=== PATIENT | female | born 1935 | race Caucasian/White ===

== ENCOUNTER 2020-04-13 14:25 | Inpatient (IN) | payer MEDICARE, OTHER, SELFPAY ==
--- NOTE | 2020-04-13 14:31 | XR_ITS ---
EXAMINATION: XR CHEST CLINICAL INFORMATION: Fever. COMPARISON: CTA chest 03/22/2019 TECHNIQUE: Frontal view of the chest was obtained. FINDINGS: The lungs are well-expanded and clear of acute pneumonic process. The heart size and pulmonary vascularity is normal. No gross bony abnormality seen. XR/XR chest 1V IMPRESSION: Unremarkable chest exam.
--- NOTE | 2020-04-13 14:31 | ED_ITS ---
HPI - General Adult General Chief complaint: Urogenital-Female Stated complaint: fever Time Seen by Provider: 04/13/20 14:31 Source: EMS Mode of arrival: EMS Limitations: no limitations History of Present Illness HPI narrative: This is a pleasant 84-year-old female presenting from home via EMS she has a history of hypertension, hyperlipidemia, DVT, pulmonary embolism chronically anticoagulated on Eliquis she also reports that she has history of urine tract infections and for the past 3 days she has had some burning like discomfort with urination today she has some chills and low-grade temp. Onset (ago): day(s) (3 days ) Related Data Home Medications Medication Instructions Recorded Confirmed apixaban [Eliquis] 1 tab PO BID 04/13/20 04/13/20 atenolol 1 tab PO DAILY 04/13/20 04/13/20 lisinopril-hydrochlorothiazide 1 tab PO DAILY 04/13/20 04/13/20 simvastatin 1 tab PO BEDTIME 04/13/20 04/13/20 Allergies Allergy/AdvReac Type Severity Reaction Status Date / Time No Known Allergies Allergy Verified 04/13/20 18:51 [No Known Allergies*] Review of Systems Review of Systems: Constitutional: No Weight loss, No Fever, + Chills, No Night Sweats, No Fatigue, No Malaise ENT/Mouth: No Hearing loss, No Ear Pain, No Nasal Congestion, No Sinus Pain, No Hoarseness, No sore throat, No Rhinorrhea, No Swallowing Difficulty Eyes: No Eye Pain, No Swelling, No Redness, No Foreign Body, No Discharge, No Vision Changes Cardiovascular: No Chest Pain, No SOB, No Dyspnea on Exertion, No Orthopnea, No Edema, No Palpitations Respiratory: No Cough, No Sputum, No Wheezing, No Smoke Exposure, No Dyspnea Gastrointestinal: No Nausea, No Vomiting, No Diarrhea, No Constipation, No abdominal Pain, No Hematochezia, No Melena Genitourinary: no irregular bleeding, + Dysuria, No Flank Pain, No Hesitancy Musculoskeletal: No joint pain, No Myalgias, No Joint Swelling Skin: No Skin Lesions, No rash Neuro: No Weakness, No Numbness, No Paresthesias, No Loss of Consciousness, No Dizziness, No Headache Psych: No Social Issues Heme/Lymph: No Bruising, No Bleeding,No Lymphadenopathy Endocrine: No Polyuria, No Polydipsia, No Temperature Intolerance Yes all other systems are reviewed and are negative [facility] Past Medical History Medical History (Updated 04/13/20 @ 19:40 by TIMMY Workman) Clostridium difficile colitis DVT (deep venous thrombosis) Endocervical adenocarcinoma Hyperlipidemia Hypertension Pulmonary embolism Urinary tract infection Family History Family History (Updated 04/13/20 @ 19:39 by TIMMY Workman) Other HTN (hypertension) Social History Social History Household Members: Family Alcohol intake: never Smoking Status: Never smoker Use of substances other than those prescribed or required for medical reasons: No Advance Directives: No Advance Directives Information Provided: No Physical Exam Vital Signs: Vital Signs: Last Vital Signs Temp 99.3 F 04/13/20 14:38 Pulse 81 04/13/20 19:01 Resp 18 04/13/20 19:01 BP 104/54 L 04/13/20 19:01 Pulse Ox 97 04/13/20 19:01 Body Mass Index 21.8 Reviewed Const: Other: Frail, elderly General: No acute distress or intoxicated appearing Nutritional Appearance: average body habitus Orientation /consciousness: patient oriented x3 HENMT: Head: Yes normal to inspection Ears: hearing grossly normal bilaterally Eyes: General: appearance normal, both eyes and all related structures Visual Bills: normal visual bills by confrontation Neck: Neck: Yes normal visual inspection and No tender Thyroid: Thyroid normal Chest: Chest palpation & inspection: normal inspection of the chest Resp: Effort & Inspection: normal respiratory effort Cardio: Jugular venous distension: no JVD GI: Inspection: Yes normal to inspection Percussion: Yes normal to percussion Auscultation: normal bowel sounds : General: Yes no CVA tenderness Back/Spine/Pelvis: Back: no CVA tenderness Skin: General skin exam: no rashes or lesions noted Neuro: General: patient oriented x3 Extrem: General: Yes normal to inspection Course Reevaluation(s) Reevaluation #1: 1540 RN was able to obtain a UA Empiric dose of ceftriaxone ordered given likely urinary and etiology with her history. WBC shows significant increase in leukocytosis from 12.92 now 19. Chemistries still pending. 1600 I attempted call to send to assist in further history apparently RN was able to contact him and she apparently is currently being treated for UTI with Macrobid Medical Decision Making Medical Records Medical records reviewed: Yes I reviewed the patient's medical records. Medical records narrative: In review 84-year-old female with above history as noted presenting with dysuria apparently currently on Macrobid lab show leukocytosis of 19,000 with T-max 101 at home afebrile upon arrival. UA overtly infected. No abdominal pain or flank pain. Lab Data Result diagrams: 04/13/20 15:07 04/13/20 16:00 Labs: Lab Results 04/13/20 04/13/20 04/13/20 Range/Units 15:07 15:07 15:07 WBC 19.4 H (4.8-10.8) X10*3/uL RBC 3.72 L (4.20-5.50) X10*6/uL Hgb 11.6 L (12.0-16.0) g/dl Hct 35.0 L (37-47) % MCV 94.1 (80-98) fL MCH 31.2 (27.0-33.0) pg MCHC 33.1 (31.0-35.0) g/dl RDW 13.5 (11.0-16.0) % Plt Count 197 (160-400) X10*3/uL MPV 8.7 L (9.4-12.3) fL Immature Gran % (Auto) 0.5 H (0.0-0.4) % Neut % (Auto) 89.0 H (45-73) % Lymph % (Auto) 4.3 L (20-40) % [place] % (Auto) 5.5 (2-11) % Eos % (Auto) 0.5 (0-4) % Baso % (Auto) 0.2 (0-2) % Lymph # (Auto) 0.8 L (1.2-4.9) X10*3/uL [place] # (Auto) 1.1 (0.1-1.2) X10*3/uL Eos # (Auto) 0.1 (0.0-0.4) X10*3/uL Baso # (Auto) 0.0 (0.0-0.2) X10*3/uL Abs Immat Gran (auto) 0.09 H (0.00-0.03) X10*3/uL Absolute Neuts (auto) 17.3 H (2.0-8.3) X10*3/uL Absolute Nucleated RBC 0.000 (0.0-0.012) X10*3/uL Nucleated RBC % (auto) 0.0 (0.0-0.2) /100WBC PT 17.1 H (10.8-13.0) SEC INR 1.4 H (0.9-1.1) APTT 35.8 (24.1-38.0) SEC Sodium Cancelled Potassium Cancelled Chloride Cancelled Carbon Dioxide Cancelled Anion Gap Cancelled BUN Cancelled Creatinine Cancelled Estim Creat Clear Calc Cancelled Estimated GFR Cancelled Random Glucose Cancelled Lactic Acid (0.5-2.0) mmol/L Calcium Cancelled Total Bilirubin Cancelled AST Cancelled ALT Cancelled Alkaline Phosphatase Cancelled Total Protein Cancelled Albumin Cancelled Urine Color Urine Appearance Urine pH (5.0-8.0) Ur Specific [place] (1.005-1.025) Urine Protein (NEG-TRACE) MG/DL Urine Glucose (UA) (NEG) MG/DL Urine Ketones (NEG) MG/DL Urine Blood (NEG) Urine Nitrite (NEG) Ur Leukocyte Esterase (NEG) Urine RBC (0) /HPF Urine WBC (0-4) /HPF Ur Squamous Epith Cells /LPF Urine Bacteria /LPF Coronavirus (PCR) (Negative) Influenza Type A (PCR) (Negative) Influenza Type B (PCR) (Negative) RSV RNA Qual (PCR) (Negative) 04/13/20 04/13/20 04/13/20 Range/Units 15:07 15:35 15:35 WBC (4.8-10.8) X10*3/uL RBC (4.20-5.50) X10*6/uL Hgb (12.0-16.0) g/dl Hct (37-47) % MCV (80-98) fL MCH (27.0-33.0) pg MCHC (31.0-35.0) g/dl RDW (11.0-16.0) % Plt Count (160-400) X10*3/uL MPV (9.4-12.3) fL Immature Gran % (Auto) (0.0-0.4) % Neut % (Auto) (45-73) % Lymph % (Auto) (20-40) % [place] % (Auto) (2-11) % Eos % (Auto) (0-4) % Baso % (Auto) (0-2) % Lymph # (Auto) (1.2-4.9) X10*3/uL [place] # (Auto) (0.1-1.2) X10*3/uL Eos # (Auto) (0.0-0.4) X10*3/uL Baso # (Auto) (0.0-0.2) X10*3/uL Abs Immat Gran (auto) (0.00-0.03) X10*3/uL Absolute Neuts (auto) (2.0-8.3) X10*3/uL Absolute Nucleated RBC (0.0-0.012) X10*3/uL Nucleated RBC % (auto) (0.0-0.2) /100WBC PT (10.8-13.0) SEC INR (0.9-1.1) APTT (24.1-38.0) SEC Sodium Potassium Chloride Carbon Dioxide Anion Gap BUN Creatinine Estim Creat Clear Calc Estimated GFR Random Glucose Lactic Acid 1.2 (0.5-2.0) mmol/L Calcium Total Bilirubin AST ALT Alkaline Phosphatase Total Protein Albumin Urine Color YELLOW Urine Appearance HAZY Urine pH 5.5 (5.0-8.0) Ur Specific [place] 1.025 (1.005-1.025) Urine Protein NEG (NEG-TRACE) MG/DL Urine Glucose (UA) NEG (NEG) MG/DL Urine Ketones NEG (NEG) MG/DL Urine Blood 1+ H (NEG) Urine Nitrite POS H (NEG) Ur Leukocyte Esterase 2+ H (NEG) Urine RBC 1-4 (0) /HPF Urine WBC 30-49 H (0-4) /HPF Ur Squamous Epith Cells TRACE /LPF Urine Bacteria 3+ /LPF Coronavirus (PCR) NEGATIVE (Negative) Influenza Type A (PCR) NEGATIVE (Negative) Influenza Type B (PCR) NEGATIVE (Negative) RSV RNA Qual (PCR) NEGATIVE (Negative) 04/13/20 Range/Units 16:00 WBC (4.8-10.8) X10*3/uL RBC (4.20-5.50) X10*6/uL Hgb (12.0-16.0) g/dl Hct (37-47) % MCV (80-98) fL MCH (27.0-33.0) pg MCHC (31.0-35.0) g/dl RDW (11.0-16.0) % Plt Count (160-400) X10*3/uL MPV (9.4-12.3) fL Immature Gran % (Auto) (0.0-0.4) % Neut % (Auto) (45-73) % Lymph % (Auto) (20-40) % [place] % (Auto) (2-11) % Eos % (Auto) (0-4) % Baso % (Auto) (0-2) % Lymph # (Auto) (1.2-4.9) X10*3/uL [place] # (Auto) (0.1-1.2) X10*3/uL Eos # (Auto) (0.0-0.4) X10*3/uL Baso # (Auto) (0.0-0.2) X10*3/uL Abs Immat Gran (auto) (0.00-0.03) X10*3/uL Absolute Neuts (auto) (2.0-8.3) X10*3/uL Absolute Nucleated RBC (0.0-0.012) X10*3/uL Nucleated RBC % (auto) (0.0-0.2) /100WBC PT (10.8-13.0) SEC INR (0.9-1.1) APTT (24.1-38.0) SEC Sodium 136 Potassium 4.1 Chloride 101 Carbon Dioxide 24 Anion Gap 15 BUN 26 H Creatinine 1.10 Estim Creat Clear Calc 32.2 Estimated GFR 47 Random Glucose 103 Lactic Acid (0.5-2.0) mmol/L Calcium 8.4 Total Bilirubin 0.8 AST 13 ALT 10 Alkaline Phosphatase 62 Total Protein 6.5 Albumin 3.9 Urine Color Urine Appearance Urine pH (5.0-8.0) Ur Specific [place] (1.005-1.025) Urine Protein (NEG-TRACE) MG/DL Urine Glucose (UA) (NEG) MG/DL Urine Ketones (NEG) MG/DL Urine Blood (NEG) Urine Nitrite (NEG) Ur Leukocyte Esterase (NEG) Urine RBC (0) /HPF Urine WBC (0-4) /HPF Ur Squamous Epith Cells /LPF Urine Bacteria /LPF Coronavirus (PCR) (Negative) Influenza Type A (PCR) (Negative) Influenza Type B (PCR) (Negative) RSV RNA Qual (PCR) (Negative) Scores Additional Scores Sepsis screening: Comment: Screening done upon arrival. This patient does not meet SIRS criteria. Discharge Plan Discharge Clinical Impression: Urinary tract infection Patient Disposition: Admitted As Inpatient Prescriptions: No Action lisinopril-hydrochlorothiazide 20-12.5 mg tablet 1 tab PO DAILY RF: 0 atenolol 25 mg tablet 1 tab PO DAILY RF: 0 simvastatin 20 mg tablet 1 tab PO BEDTIME RF: 0 Eliquis 2.5 mg tablet 1 tab PO BID RF: 0
[2020-04-13 14:38] VITALS: BP 76/49; BP 90/49; PULSE 81; RESP 18; TEMP 37.4; O2SAT 95; O2SAT 97; BMI 21.8
[2020-04-13 15:15] LABS: Basophils Percent Auto 0.2 % (0-2); Eosinophils Absolute Auto 0.1 X10*3/uL (0.0-0.4); Eosinophils Percent Auto 0.5 % (0-4); Hemoglobin 11.6 g/dl (12.0-16.0); Imm Gran Abs Auto 0.09 X10*3/uL (0.00-0.03); Imm Gran Pct Auto 0.5 % (0.0-0.4); Lymphocytes Absolute Auto 0.8 X10*3/uL (1.2-4.9); Lymphocytes Percent Auto 4.3 % (20-40); Mean Corpuscular HGB Conc 33.1 g/dl (31.0-35.0); Mean Corpuscular Hemoglobin 31.2 pg (27.0-33.0); Mean Corpuscular Volume 94.1 fL (80-98); Mean Platelet Volume 8.7 fL (9.4-12.3); Monocytes Absolute Auto 1.1 X10*3/uL (0.1-1.2); Monocytes Percent Auto 5.5 % (2-11); Neutrophils Absolute Auto 17.3 X10*3/uL (2.0-8.3); Platelet Count 197 X10*3/uL (160-400); Red Blood Count 3.72 X10*6/uL (4.20-5.50); Red Cell Distribution Width 13.5 % (11.0-16.0); White Blood Count 19.4 X10*3/uL (4.8-10.8)
[2020-04-13 15:16] LABS: MANUAL DIFF FLAG NO
[2020-04-13] MEDS: 0.9 % Sodium Chloride 1,000 ML 999 ML IV ×2 (15:20→22:26)
[2020-04-13 15:38] LABS: INTERNATIONAL NORM RATIO 1.4 (0.9-1.1); Prothrombin Time 17.1 SEC (10.8-13.0)
[2020-04-13 15:41] LABS: Lactic Acid 1.2 mmol/L (0.5-2.0); Partial Thromboplastin Time 35.8 SEC (24.1-38.0)
[2020-04-13 15:49] LABS: Glucose Urine UA NEG (NEG); Leukocyte Esterase Urine 2+ (NEG); Nitrite Urine POS (NEG); PH 5.5 (5.0-8.0); Specific Gravity - Urine 1.025 (1.005-1.025); Urine Blood 1+ (NEG); Urine Ketones NEG (NEG); Urine Protein NEG (NEG-TRACE)
--- NOTE | 2020-04-13 15:50 | PC.NURSE ---
spoke w pt son in [place] w pt permission.
[2020-04-13 15:51] LABS: Appearance Urine HAZY; Color Urine YELLOW
[2020-04-13] MEDS: cefTRIAXone sodium 1 GM in 0.9 % Sodium Chloride 50 ML IV (16:02)
[2020-04-13 16:14] LABS: Bacteria Urine 3+ /LPF; Squamous Epithelial Cell Urine TRACE /LPF; WBC Urine 30-49 /HPF (0-4)
[2020-04-13 16:18] LABS: Influenza A PCR NEGATIVE (Negative); Influenza B PCR NEGATIVE (Negative); Resp Syncy Virus RNA Qual PCR NEGATIVE (Negative); SARS COV2 PCR INHOUSE NEGATIVE (Negative)
[2020-04-13 16:30] LABS: Alanine Aminotransferase 10 U/L (0-31); Albumin Level 3.9 g/dL (3.5-5.0); Alkaline Phosphatase 62 U/L (39-117); Anion Gap 15 (12-20); Aspartate Amino Transferase 13 U/L (5-31); Bilirubin Total 0.8 mg/dL (0.0-1.0); Blood Urea Nitrogen 26 mg/dL (9-16); Calcium 8.4 mg/dL (8.4-10.2); Carbon Dioxide 24 mmol/L (22-29); Chloride 101 mmol/L (96-108); Creatinine Clr Calc Pharmacy 32.2; Estimated Glomerular Filt Rate 47; Glucose Random 103 mg/dL (60-115); Potassium 4.1 mmol/l (3.3-5.1); Sodium 136 mmol/L (135-145); Total Protein 6.5 g/dL (6.5-8.0)
--- NOTE | 2020-04-13 16:57 | PC.NURSE ---
pt assisted to commode, had small amount bm, given hospital pants and female brief.
[2020-04-13 19:01] VITALS: BP 104/54; PULSE 81; RESP 18; O2SAT 97
--- NOTE | 2020-04-13 19:32 | PM.IMHP ---
History of Present Illness Date of Service: 04/13/20 Chief Complaint: Dysuria This is an 84 year female who presents to the emergency department with dysuria. She has a history of recurrent UTIs. Last evening she reported chills with associated dysuria and weakness. She has had associated nausea but no vomiting. On arrival she was hypotensive with a blood pressure in the 90s. She was noted to have low-grade fever of 99.3. Lab work was significant for leukocytosis of 19.4. Urinalysis was consistent with UTI and she was started on IV ceftriaxone. She reports that she follows with Infectious Disease at [facility] and was told that she should take empiric vancomycin any time she takes antibiotics due to history of recurrent C diff. Review of Systems Review of Systems: Yes all other systems are reviewed and are negative Constitutional: Constitutional: Denies fever(s) Cardiovascular: Cardiovascular: Denies chest pain Respiratory: Respiratory: Denies cough Gastrointestinal: Gastrointestinal: Denies abdominal pain [facility] Medical History (Updated 04/13/20 @ 19:40 by TIMMY Workman) Clostridium difficile colitis DVT (deep venous thrombosis) Endocervical adenocarcinoma Hyperlipidemia Hypertension Pulmonary embolism Urinary tract infection Functional capacity: independent ambulation Family History (Updated 04/13/20 @ 19:39 by TIMMY Workman) Other HTN (hypertension) Family history: reviewed and not pertinent Social History (Updated 04/13/20 @ 19:39 by TIMMY Workman) Household Members: Family Alcohol intake: never Smoking Status: Never smoker Use of substances other than those prescribed or required for medical reasons: No Advance Directives: No Advance Directives Information Provided: No Meds Allergies Allergy/AdvReac Type Severity Reaction Status Date / Time No Known Allergies Allergy Verified 04/13/20 18:51 [No Known Allergies*] Home Medications Medication Instructions Recorded Confirmed Type apixaban [Eliquis] 1 tab PO BID 04/13/20 04/13/20 History atenolol 1 tab PO DAILY 04/13/20 04/13/20 History lisinopril-hydrochlorothiazide 1 tab PO DAILY 04/13/20 04/13/20 History simvastatin 1 tab PO BEDTIME 04/13/20 04/13/20 History Physical Exam Vital Signs and Narrative: Vital Signs: Last Vital Signs Temp 99.3 F 04/13/20 14:38 Pulse 81 12/26/20 19:01 Resp 18 04/13/20 19:01 BP 104/54 L 04/13/20 19:01 Pulse Ox 97 04/13/20 19:01 Body Mass Index 21.8 Const: Other: Chronically ill-appearing General: no acute distress, alert and awake Nutritional Appearance: thin Orientation/consciousness: patient oriented x3 HENMT: Head: Yes normocephalic and Yes atraumatic Eyes: Sclerae: sclerae normal Chest: Chest palpation & inspection: normal inspection of the chest Resp: Effort & Inspection: normal respiratory effort and no respiratory distress Auscultation: clear to auscultation bilaterally Cardio: Rate: regular rate Rhythm: regular rhythm GI: Palpation (GI): Soft to palpation and nontender Skin: General skin exam: no rashes or lesions noted Neuro: General: patient oriented x3 Cranial nerves: Yes CN's II-XII intact bilaterally and Yes Bilaterally intact EOM present Extrem: General: Yes normal to inspection Results Labs CBC and Chem 7: 04/13/20 15:07 04/13/20 16:00 Labs: Laboratory Results - last 24 hr 04/13/20 04/13/20 04/13/20 15:07 15:07 15:07 MCV 94.1 MCH 31.2 MCHC 33.1 RDW 13.5 Plt Count 197 MPV 8.7 L Immature Gran % (Auto) 0.5 H Neut % (Auto) 89.0 H Lymph % (Auto) 4.3 L [place] % (Auto) 5.5 Eos % (Auto) 0.5 Baso % (Auto) 0.2 Lymph # (Auto) 0.8 L [place] # (Auto) 1.1 Eos # (Auto) 0.1 Baso # (Auto) 0.0 Abs Immat Gran (auto) 0.09 H Absolute Neuts (auto) 17.3 H Absolute Nucleated RBC 0.000 Nucleated RBC % (auto) 0.0 PT 17.1 H INR 1.4 H APTT 35.8 Anion Gap Cancelled Estim Creat Clear Calc Cancelled Estimated GFR Cancelled Random Glucose Cancelled Lactic Acid Calcium Cancelled Total Bilirubin Cancelled AST Cancelled ALT Cancelled Alkaline Phosphatase Cancelled Total Protein Cancelled Albumin Cancelled Urine Color Urine Appearance Urine pH Ur Specific [place] Urine Protein Urine Glucose (UA) Urine Ketones Urine Blood Urine Nitrite Ur Leukocyte Esterase Urine RBC Urine WBC Ur Squamous Epith Cells Urine Bacteria Coronavirus (PCR) Influenza Type A (PCR) Influenza Type B (PCR) RSV RNA Qual (PCR) 04/13/20 04/13/20 04/13/20 15:07 15:35 15:35 MCV MCH MCHC RDW Plt Count MPV Immature Gran % (Auto) Neut % (Auto) Lymph % (Auto) [place] % (Auto) Eos % (Auto) Baso % (Auto) Lymph # (Auto) [place] # (Auto) Eos # (Auto) Baso # (Auto) Abs Immat Gran (auto) Absolute Neuts (auto) Absolute Nucleated RBC Nucleated RBC % (auto) PT INR APTT Anion Gap Estim Creat Clear Calc Estimated GFR Random Glucose Lactic Acid 1.2 Calcium Total Bilirubin AST ALT Alkaline Phosphatase Total Protein Albumin Urine Color YELLOW Urine Appearance HAZY Urine pH 5.5 Ur Specific [place] 1.025 Urine Protein NEG Urine Glucose (UA) NEG Urine Ketones NEG Urine Blood 1+ H Urine Nitrite POS H Ur Leukocyte Esterase 2+ H Urine RBC 1-4 Urine WBC 30-49 H Ur Squamous Epith Cells TRACE Urine Bacteria 3+ Coronavirus (PCR) NEGATIVE Influenza Type A (PCR) NEGATIVE Influenza Type B (PCR) NEGATIVE RSV RNA Qual (PCR) NEGATIVE 04/13/20 16:00 MCV MCH MCHC RDW Plt Count MPV Immature Gran % (Auto) Neut % (Auto) Lymph % (Auto) [place] % (Auto) Eos % (Auto) Baso % (Auto) Lymph # (Auto) [place] # (Auto) Eos # (Auto) Baso # (Auto) Abs Immat Gran (auto) Absolute Neuts (auto) Absolute Nucleated RBC Nucleated RBC % (auto) PT INR APTT Anion Gap 15 Estim Creat Clear Calc 32.2 Estimated GFR 47 Random Glucose 103 Lactic Acid Calcium 8.4 Total Bilirubin 0.8 AST 13 ALT 10 Alkaline Phosphatase 62 Total Protein 6.5 Albumin 3.9 Urine Color Urine Appearance Urine pH Ur Specific [place] Urine Protein Urine Glucose (UA) Urine Ketones Urine Blood Urine Nitrite Ur Leukocyte Esterase Urine RBC Urine WBC Ur Squamous Epith Cells Urine Bacteria Coronavirus (PCR) Influenza Type A (PCR) Influenza Type B (PCR) RSV RNA Qual (PCR) Imaging Radiologist's Impressions: Impressions Chest X-Ray 04/13/20 14:31 IMPRESSION: Unremarkable chest exam. Assessment and Plan (1) Urinary tract infection: Status: Inactive This is an 84-year-old female with history of hypertension, dyslipidemia, DVT/PE on Eliquis, endocervical adenocarcinoma with distant metastases, recurrent UTI, recurrent C diff who presents to the emergency department with dysuria found to have UTI. UTI No evidence of sepsis Lactic acid within normal limits Blood pressure soft on arrival, improved with IV fluid History of E coli UTI, will continue IV ceftriaxone Given history of recurrent C diff her ID doctor has recommended prophylactic oral vancomycin with any antibiotic use Follow-up urine culture, blood culture History of DVT/PE Continue anticoagulation with Eliquis Hypertension Blood pressure soft Hold atenolol, lisinopril/HCTZ Normocytic Anemia Follow CBC DVT prophylaxis-Eliquis Code status patient wishes to be DNR/DNI This case was discussed with Dr. Means
[2020-04-13 20:00] VITALS: BP 93/46; PULSE 56; RESP 15; O2SAT 94
--- NOTE | 2020-04-13 20:35 | PC.NURSE ---
Ceftriaxone scheduled for 1930 was not given as it was previously administered as noted.
[2020-04-13] MEDS: vancomycin HCL 125 MG CAPSULE PO (20:48)
[2020-04-13] MEDS: Apixaban 2.5 MG TABLET PO (20:48)
[2020-04-13 22:00] VITALS: BP 115/61; RESP 104; O2SAT 96
--- NOTE | 2020-04-13 22:00 | PC.NURSE ---
Called to give report to floor. Rn in a patient's room and will call back
--- NOTE | 2020-04-13 22:09 | PC.NURSE ---
Report given to floor. Patient ready for transport to floor
[2020-04-14 00:33] VITALS: BP 131/71; PULSE 76; RESP 18; TEMP 36.2; O2SAT 95
[2020-04-14] MEDS: 0.9 % Sodium Chloride Flush 3 ML SYRINGE IVFLUSH ×3 (01:32→16:25)
[2020-04-14 07:02] LABS: Basophils Percent Auto 0.2 % (0-2); Eosinophils Percent Auto 0.2 % (0-4); Hematocrit 32.7 % (37-47); Hemoglobin 10.6 g/dl (12.0-16.0); Imm Gran Abs Auto 0.11 X10*3/uL (0.00-0.03); Imm Gran Pct Auto 0.6 % (0.0-0.4); Lymphocytes Absolute Auto 1.8 X10*3/uL (1.2-4.9); Lymphocytes Percent Auto 9.7 % (20-40); MANUAL DIFF FLAG SCAN; Mean Corpuscular HGB Conc 32.4 g/dl (31.0-35.0); Mean Corpuscular Hemoglobin 30.5 pg (27.0-33.0); Mean Platelet Volume 9.5 fL (9.4-12.3); Monocytes Absolute Auto 1.6 X10*3/uL (0.1-1.2); Monocytes Percent Auto 8.5 % (2-11); Neutrophils Percent Auto 80.8 % (45-73); Platelet Count 182 X10*3/uL (160-400); Red Blood Count 3.48 X10*6/uL (4.20-5.50); Red Cell Distribution Width 13.7 % (11.0-16.0); SCAN SMEAR FLAG 1; White Blood Count 18.5 X10*3/uL (4.8-10.8)
[2020-04-14 07:31] LABS: Anion Gap 13 (12-20); Blood Urea Nitrogen 22 mg/dL (9-16); Carbon Dioxide 23 mmol/L (22-29); Chloride 105 mmol/L (96-108); Creatinine Clr Calc Pharmacy 42.8; Estimated Glomerular Filt Rate > 60; Glucose Random 76 mg/dL (60-115); Potassium 3.8 mmol/l (3.3-5.1); Sodium 137 mmol/L (135-145)
[2020-04-14 07:53] LABS: SLIDE REVIEW VERIFIED
[2020-04-14 08:00] VITALS: BP 107/52; PULSE 72; RESP 18; TEMP 36.4; O2SAT 92
[2020-04-14] MEDS: Apixaban 2.5 MG TABLET PO ×2 (08:12→21:01)
[2020-04-14] MEDS: vancomycin HCL 125 MG CAPSULE PO ×2 (08:12→21:01)
[2020-04-14] MEDS: Atorvastatin Calcium 10 MG TABLET PO (08:12)
--- NOTE | 2020-04-14 11:34 | P.PNIM_ITS ---
Subjective Subjective Date of Service: 04/14/20 Interval History: Seen in f/u for UTI and sepsis. Feels better today ROS: no fever, no abdominal pain Physical Exam Vital Signs: Vital Signs: Last Vital Signs Temp 97.6 F 04/14/20 08:00 Pulse 72 04/14/20 08:00 Resp 18 04/14/20 08:00 BP 107/52 L 04/14/20 08:00 Pulse Ox 92 04/14/20 08:00 Body Mass Index 21.8 Const: Other: General: AO X 3, no acute distress Resp: CTA bilateral CVS: S1,S2,RRR GI: +BS, NT, no distention Skin: No rash Neuro: motor grossly intact Psych: appropriate affect Objective Data Current Medications Generic Name Dose Route Start Last Admin Trade Name Freq PRN Reason Stop Dose Admin Acetaminophen 650 mg 04/13/20 19:31 Acetaminophen 325 Mg Tablet PO Q6H PRN Pain, Mild (Pain Scale 1-3) Apixaban 2.5 mg 04/13/20 21:00 04/14/20 08:12 Apixaban 2.5 Mg Tablet PO 2.5 mg BID ANASTASIYA Administration Atorvastatin Calcium 10 mg 04/14/20 09:00 04/14/20 08:12 Atorvastatin Calcium 10 Mg Tablet PO 10 mg DAILY ANASTASIYA Administration Docusate Sodium 100 mg 04/13/20 19:31 Docusate Sodium 100 Mg Capsule PO DAILY PRN Constipation Ceftriaxone Sodium 1 gm/ 50 mls @ 100 mls/hr 04/13/20 19:31 04/13/20 20:35 Sodium Chloride IV Not Given Q24H [facility] Ondansetron HCl 4 mg 04/13/20 19:31 Ondansetron Hcl 4 Mg/2 Ml Vial IVPUSH Q8H PRN Nausea and Vomiting Pharmacy Consult 1 each 04/13/20 17:00 Consult Rx Perform Med Rec MISCELLANE ONCE PRN Consult order Sodium Chloride 3 ml 04/14/20 00:00 04/14/20 08:12 0.9 % Sodium Chloride Flush 3 Ml Syringe IVFLUSH 3 ml QSHIFT ANASTASIYA Administration Vancomycin HCl 125 mg 04/13/20 21:00 04/14/20 08:12 Vancomycin Hcl 125 Mg Capsule PO 125 mg BID ANASTASIYA Administration Labs CBC & Chem 7: 04/14/20 05:29 04/14/20 05:29 Microbiology Microbiology Results: Microbiology 04/13/20 15:30 Urine clean catch - Clean Catch Midstream Urine Culture - Preliminary Culture in progress. Assessment and Plan (1) Urinary tract infection: Status: Inactive Assessment and Plan: 84-year-old female with history of hypertension, dyslipidemia, DVT/PE on Eliquis, endocervical adenocarcinoma with distant metastases, recurrent UTI, rec urrent C diff who presents to the emergency department with dysuria found to have UTI. UTI No evidence of sepsis, WBC coming down Lactic acid within normal limits History of E coli UTI, will continue IV ceftriaxone Given history of recurrent C diff her ID doctor has recommended prophylactic oral vancomycin with any antibiotic use Follow-up urine culture, blood culture History of DVT/PE Continue anticoagulation with Eliquis Hypertension Blood pressure soft Hold atenolol, lisinopril/HCTZ Normocytic Anemia Follow CBC DVT prophylaxis-Eliquis Code status patient wishes to be DNR/DNI
--- NOTE | 2020-04-14 15:27 | MHC.CM.PN ---
Pt reports she lives at home with her son and is independent with self care. Pt reports she has a walker but does not usually need it. Pt does not have any home services. Pt reports her PCP is at [facility] in [facility]. Pt reports she has a HCP naming her two sons as her agents. IMM delivered current DC plan is home with no services Family will transport
[2020-04-14 16:00] VITALS: BP 134/72; PULSE 72; RESP 20; TEMP 36.8; O2SAT 95
[2020-04-14] MEDS: cefTRIAXone sodium 1 GM in 0.9 % Sodium Chloride 50 ML IV (21:02)
[2020-04-15] VITALS: BP 132/66; PULSE 78; RESP 18; TEMP 36.8; O2SAT 95
[2020-04-15] MEDS: 0.9 % Sodium Chloride Flush 3 ML SYRINGE IVFLUSH ×4 (00:11→20:39)
[2020-04-15 06:46] LABS: Hemoglobin 10.6 g/dl (12.0-16.0); Mean Corpuscular HGB Conc 33.1 g/dl (31.0-35.0); Mean Corpuscular Hemoglobin 30.8 pg (27.0-33.0); Mean Platelet Volume 9.3 fL (9.4-12.3); Platelet Count 182 X10*3/uL (160-400); Red Blood Count 3.44 X10*6/uL (4.20-5.50); Red Cell Distribution Width 13.4 % (11.0-16.0)
[2020-04-15] MEDS: Acetaminophen 325 MG TABLET 650 MG PO (07:28)
[2020-04-15 07:33] VITALS: BP 128/74; PULSE 74; RESP 18; TEMP 36.3; O2SAT 97
[2020-04-15] MEDS: Apixaban 2.5 MG TABLET PO ×2 (08:05→20:38)
[2020-04-15] MEDS: Atorvastatin Calcium 10 MG TABLET PO (08:05)
[2020-04-15] MEDS: vancomycin HCL 125 MG CAPSULE PO (08:05)
--- NOTE | 2020-04-15 09:39 | HO.PM.IMPN ---
Subjective Subjective Date of Service: 04/15/20 Interval History: Seen in f/u for UTI and sepsis. Better but has abdominal cramps and is having multiple diarrheas ROS: no fever, no abdominal pain Physical Exam Vital Signs: Vital Signs: Last Vital Signs Temp 97.4 F 04/15/20 07:33 Pulse 74 04/15/20 07:33 Resp 18 04/15/20 07:33 BP 128/74 04/15/20 07:33 Pulse Ox 97 04/15/20 07:33 Body Mass Index 21.8 Const: Other: General: AO X 3, no acute distress Resp: CTA bilateral CVS: S1,S2,RRR GI: +BS, NT, no distention Skin: No rash Neuro: motor grossly intact Psych: appropriate affect Objective Data Current Medications Generic Name Dose Route Start Last Admin Trade Name Freq PRN Reason Stop Dose Admin Acetaminophen 650 mg 04/13/20 19:31 04/15/20 07:28 Acetaminophen 325 Mg Tablet PO 650 mg Q6H PRN Administration Pain, Mild (Pain Scale 1-3) Apixaban 2.5 mg 04/13/20 21:00 04/15/20 08:05 Apixaban 2.5 Mg Tablet PO 2.5 mg BID ANASTASIYA Administration Atorvastatin Calcium 10 mg 04/14/20 09:00 04/15/20 08:05 Atorvastatin Calcium 10 Mg Tablet PO 10 mg DAILY ANASTASIYA Administration Docusate Sodium 100 mg 04/13/20 19:31 Docusate Sodium 100 Mg Capsule PO DAILY PRN Constipation Ceftriaxone Sodium 1 gm/ 50 mls @ 100 mls/hr 04/13/20 19:31 04/14/20 21:36 Sodium Chloride IV Infused Q24H ANASTASIYA Infusion Ondansetron HCl 4 mg 04/13/20 19:31 Ondansetron Hcl 4 Mg/2 Ml Vial IVPUSH Q8H PRN Nausea and Vomiting Pharmacy Consult 1 each 04/13/20 17:00 Consult Rx Perform Med Rec MISCELLANE ONCE PRN Consult order Sodium Chloride 3 ml 04/14/20 00:00 04/15/20 07:24 0.9 % Sodium Chloride Flush 3 Ml Syringe IVFLUSH 3 ml QSHIFT ANASTASIYA Administration Vancomycin HCl 125 mg 04/13/20 21:00 04/15/20 08:05 Vancomycin Hcl 125 Mg Capsule PO 125 mg BID ANASTASIYA Administration Labs CBC & Chem 7: 04/15/20 05:45 04/14/20 05:29 Microbiology Microbiology Results: Microbiology 04/13/20 15:30 Urine clean catch - Clean Catch Midstream Urine Culture - Preliminary Gram negative antonio 04/13/20 15:19 Blood - Venous Blood Culture - Preliminary No growth after 24 hours. 04/13/20 15:07 Blood - Venous Blood Culture - Preliminary No growth after 24 hours. Assessment and Plan (1) Urinary tract infection: Status: Inactive Assessment and Plan: 84-year-old female with history of hypertension, dyslipidemia, DVT/PE on Eliquis, endocervical adenocarcinoma with distant metastases, recurrent UTI, recurrent C diff who presents to the emergency department with dysuria found to have UTI. UTI No evidence of sepsis, WBC coming down Lactic acid within normal limits History of E coli UTI, will continue IV ceftriaxone. Culture from 04/13 growing gram negative rods no sensitivity Given history of recurrent C diff her ID doctor has recommended prophylactic oral vancomycin with any antibiotic use Follow-up urine culture, blood culture Diarrhea with recent history of C dif--incrase Vancomycin to 25o qid and repeat C dif tox History of DVT/PE Continue anticoagulation with Eliquis Hypertension Blood pressure soft Hold atenolol, lisinopril/HCTZ Normocytic Anemia Follow CBC DVT prophylaxis-Eliquis PT eval before discharge Code status patient wishes to be DNR/DNI
--- NOTE | 2020-04-15 10:16 | P.CDIC_ITS ---
CDI Concurrent Query Service Date: 04/16/20 Documentation Clarification: Please clarify if you are treating a proba ble/suspected/likely or confirmed: Consistency and clarity if documentation: Sepsis txt Sepsis rule out Sepsis resolved Please specify if known Provider Response: Sepsis PLEASE DO NOT DELETE/MODIFY EXISTING CONTENT Additional information is needed in order to code to the highest accuracy and appropriate Severity of Illness (SOI). Please clarify the information noted below in your progress notes and discharge summary. Risk Factors/Clinical Indicators/Treatments PN 04/14 - SUBJECTIVE: seen in f/u for UTI and Sepsis. Assessment/plan: UTI, no evidence of Sepsis WBC coming down Vancomycin, Ceftriaxone WBC 19.4 Temp at home 101.3 LA normal, follow up urine culture, blood culture. CDS: Sushma Paniagua CCS, [facility]IS Contact Number: [phone] Please Review the information above and exercise your independent professional judgment in responding to the query. If you concur, pleas document in the PROGRESS NOTES and DISCHARGE SUMMARY. If you do not agree with the query, please document in the query above. THIS QUERY IS PART OF THE PERMANENT MEDICAL RECORD
[2020-04-15 10:45] VITALS: BP 128/74; PULSE 74; O2SAT 97
[2020-04-15 11:53] LABS: CDIFF Ag Positive (Negative); CDIFF Internal ctrl Dots and bkg OK (V); CDiff Toxin Negative (Negative)
[2020-04-15 12:48] LABS: CDiff Gene PCR POSITIVE (Negative)
--- NOTE | 2020-04-15 12:54 | PC.NURSE ---
SEROLOGY CALLED PT IS POSITIVE FOR C-DIFF, INFORMED AND PATIENTS NURSE JESSIKA.
[2020-04-15] MEDS: vancomycin HCL 125 MG CAPSULE 250 MG PO ×3 (13:10→20:38)
[2020-04-15 16:00] VITALS: BP 155/82; PULSE 73; RESP 18; TEMP 36.8; O2SAT 98
[2020-04-15] MEDS: cefTRIAXone sodium 1 GM in 0.9 % Sodium Chloride 50 ML IV (19:25)
[2020-04-15 23:28] VITALS: BP 121/69; PULSE 70; RESP 19; TEMP 36.4; O2SAT 93
[2020-04-16 07:28] VITALS: BP 139/80; PULSE 62; RESP 18; TEMP 36.7; O2SAT 98
[2020-04-16] MEDS: Apixaban 2.5 MG TABLET PO (08:52)
[2020-04-16] MEDS: vancomycin HCL 125 MG CAPSULE 250 MG PO ×2 (08:52→12:17)
[2020-04-16] MEDS: Atorvastatin Calcium 10 MG TABLET PO (08:52)
[2020-04-16] MEDS: 0.9 % Sodium Chloride Flush 3 ML SYRINGE IVFLUSH (08:52)
--- NOTE | 2020-04-16 11:23 | MHC.CM.PN ---
PATIENT IS DISCHARGED HOME - SELF CARE. RN AWARE OF PLAN.
--- NOTE | 2020-04-16 11:24 | PM.DS ---
DS: Providers Provider Date of admission: 04/13/20 19:31 Primary care physician: Unknown Physician Consults: 04/16/20 07:55 Consult to Infectious Diseases Routine Consulting Provider: Fabiola Wright Reason for consultation: C DIFF infcetion, UTI Has provider been notified: No DS: Diagnosis Discharge Diagnosis (1) Urinary tract infection: Status: Inactive DS: Medications Discharge Medications Home Medications: Home Medications Medication Instructions Recorded Confirmed apixaban [Eliquis] 2.5 mg PO BID 04/13/20 04/13/20 atenolol 25 mg PO DAILY 04/13/20 04/13/20 lisinopril-hydrochlorothiazide 1 tab PO DAILY 04/13/20 04/13/20 simvastatin 20 mg PO BEDTIME 04/13/20 04/13/20 DS: Summary Hospital Course Hospital Course: HIP Chief Complaint: Dysuria This is an 84 year female who presents to the emergency department with dysuria. She has a history of recurrent UTIs. Last evening she reported chills with associated dysuria and weakness. She has had associated nausea but no vomiting. On arrival she was hypotensive with a blood pressure in the 90s. She was noted to have low-grade fever of 99.3. Lab work was significant for leukocytosis of 19.4. Urinalysis was consistent with UTI and she was started on IV ceftriaxone. She reports that she follows with Infectious Disease at [facility] and was told that she should take empiric vancomycin any time she takes antibiotics due to history of recurrent C diff. Hospital course: Sepsis d/t UTI and Cdif--Sepsis treated and resolved. UTI--Urine culture has grown E.coli and Klebsiela--both sensitive to ceftriaxone. She has been on Ceftriaxone in the hospital and will treat with Ceftin upon discharge.. Will avoid prolong antibiotics use in light of Cdif C diff--she has history of recurrent C dif and Dr. Rome has suggest to take Vanco when she's on antibiotics for other reason. She was having diarrhea when she came and tesed positive for Cdif--the Cdif was present on admission. She has been started oral Vanco 250 QID for 14 days and should follow up with Dr. Rome, there has been discussion in the past about stool transplant.. To follow up with Dr. Rome for this. History of DVT/PE Continue anticoagulation with Eliquis Hypertension--BP was soft on admission so Lisinopril and HCTZ were on hold but may resume now that BP within normal. Advise to drink plenty of fluid as weell Time Spent with Patient Time attestation: Total time spent providing and/or coordinating discharge services: Physical Exam Vital Signs: Vital Signs: Last Vital Signs Temp 98.0 F 04/16/20 07:28 Pulse 62 04/16/20 07:28 Resp 18 04/16/20 07:28 BP 139/80 04/16/20 07:28 Pulse Ox 98 04/16/20 07:28 Body Mass Index 21.8 General: AO X 3, no acute distress Resp: CTA bilateral CVS: S1,S2,RRR GI: +BS, NT, no distention Skin: No rash Neuro: motor grossly intact Psych: appropriate affect DS: Data Data Completed and Pending Labs on day of discharge: 04/13/20 14:31 XR chest 1V Stat 0.9 % Sodium Chloride [Ns] 1,000 ml IV 999 mls/hr 04/13/20 15:07 Complete Blood Count Auto Diff Stat Lactic Acid Stat Partial Thromboplastin Time Stat Prothrombin Time INR Stat 04/13/20 15:30 Urine Culture Routine 04/13/20 15:35 SARS-CoV2/FLU/RSV Stat 04/13/20 15:46 cefTRIAXone sodium [Rocephin] 1 gm 0.9 % Sodium Chloride [Ns] 50 ml IV ONCE 04/13/20 15:59 cefTRIAXone sodium [Rocephin] 1 gm .ROUTE .STK-MED ONE 04/13/20 16:00 CMP [Comprehensive Met. Panel] Stat 04/13/20 19:19 Transfer Order Routine 04/13/20 21:00 vancomycin HCL [Vancocin] 125 mg PO BID 04/13/20 22:26 0.9 % Sodium Chloride [Ns] 1,000 ml IV 999 mls/hr 04/14/20 05:29 Basic Metabolic Panel DAILY@0600 Complete Blood Count Auto Diff DAILY@0600 SLIDE REVIEW Routine 04/14/20 11:44 Transfer Order Routine 04/14/20 20:54 cefTRIAXone sodium [Rocephin] 1 gm .ROUTE .STK-MED ONE 04/15/20 05:45 Complete Blood Count no Diff DAILY@0600 04/15/20 10:33 CDiff with Reflex to PCR Stat 04/15/20 19:23 cefTRIAXone sodium [Rocephin] 1 gm .ROUTE .STK-MED ONE Laboratory Last Values WBC 13.0 X10*3/uL (4.8-10.8) H 04/15/20 05:45 RBC 3.44 X10*6/uL (4.20-5.50) L 04/15/20 05:45 Hgb 10.6 g/dl (12.0-16.0) L 04/15/20 05:45 Hct 32.0 % (37-47) L 04/15/20 05:45 MCV 93.0 fL (80-98) 04/15/20 05:45 MCH 30.8 pg (27.0-33.0) 04/15/20 05:45 MCHC 33.1 g/dl (31.0-35.0) 04/15/20 05:45 RDW 13.4 % (11.0-16.0) 04/15/20 05:45 Plt Count 182 X10*3/uL (160-400) 04/15/20 05:45 MPV 9.3 fL (9.4-12.3) L 04/15/20 05:45 Immature Gran % (Auto) 0.6 % (0.0-0.4) H 04/14/20 05:29 Neut % (Auto) 80.8 % (45-73) H 04/14/20 05:29 Lymph % (Auto) 9.7 % (20-40) L 04/14/20 05:29 [place] % (Auto) 8.5 % (2-11) 04/14/20 05:29 Eos % (Auto) 0.2 % (0-4) 04/14/20 05:29 Baso % (Auto) 0.2 % (0-2) 04/14/20 05:29 Lymph # (Auto) 1.8 X10*3/uL (1.2-4.9) 04/14/20 05:29 [place] # (Auto) 1.6 X10*3/uL (0.1-1.2) H 04/14/20 05:29 Eos # (Auto) 0.0 X10*3/uL (0.0-0.4) 04/14/20 05:29 Baso # (Auto) 0.0 X10*3/uL (0.0-0.2) 04/14/20 05:29 Abs Immat Gran (auto) 0.11 X10*3/uL (0.00-0.03) H 04/14/20 05:29 Absolute Neuts (auto) 15.0 X10*3/uL (2.0-8.3) H 04/14/20 05:29 Absolute Nucleated RBC 0.000 X10*3/uL (0.0-0.012) 04/15/20 05:45 Nucleated RBC % (auto) 0.0 /100WBC (0.0-0.2) 04/15/20 05:45 Smear Tech's Comments VERIFIED 04/14/20 05:29 PT 17.1 SEC (10.8-13.0) H 04/13/20 15:07 INR 1.4 (0.9-1.1) H 04/13/20 15:07 APTT 35.8 SEC (24.1-38.0) 04/13/20 15:07 Sodium 137 mmol/L (135-145) 04/14/20 05:29 Potassium 3.8 mmol/l (3.3-5.1) 04/14/20 05:29 Chloride 105 mmol/L (96-108) 04/14/20 05:29 Carbon Dioxide 23 mmol/L (22-29) 04/14/20 05:29 Anion Gap 13 (12-20) 04/14/20 05:29 BUN 22 mg/dL (9-16) H 04/14/20 05:29 Creatinine 0.83 mg/dL (0.5-1.4) 04/14/20 05:29 Estim Creat Clear Calc 42.8 04/14/20 05:29 Estimated GFR > 60 04/14/20 05:29 Random Glucose 76 mg/dL (60-115) 04/14/20 05:29 Lactic Acid 1.2 mmol/L (0.5-2.0) 04/13/20 15:07 Calcium 8.0 mg/dL (8.4-10.2) L 04/14/20 05:29 Total Bilirubin 0.8 mg/dL (0.0-1.0) 04/13/20 16:00 AST 13 U/L (5-31) 04/13/20 16:00 ALT 10 U/L (0-31) 04/13/20 16:00 Alkaline Phosphatase 62 U/L (39-117) 04/13/20 16:00 Total Protein 6.5 g/dL (6.5-8.0) 04/13/20 16:00 Albumin 3.9 g/dL (3.5-5.0) 04/13/20 16:00 Urine Color YELLOW 04/13/20 15:35 Urine Appearance HAZY 04/13/20 15:35 Urine pH 5.5 (5.0-8.0) 04/13/20 15:35 Ur Specific [place] 1.025 (1.005-1.025) 04/13/20 15:35 Urine Protein NEG MG/DL (NEG-TRACE) 04/13/20 15:35 Urine Glucose (UA) NEG MG/DL (NEG) 04/13/20 15:35 Urine Ketones NEG MG/DL (NEG) 04/13/20 15:35 Urine Blood 1+ (NEG) H 04/13/20 15:35 Urine Nitrite POS (NEG) H 04/13/20 15:35 Ur Leukocyte Esterase 2+ (NEG) H 04/13/20 15:35 Urine RBC 1-4 /HPF (0) 04/13/20 15:35 Urine WBC 30-49 /HPF (0-4) H 04/13/20 15:35 Ur Squamous Epith Cells TRACE /LPF 04/13/20 15:35 Urine Bacteria 3+ /LPF 04/13/20 15:35 C. difficile Tox B Gene POSITIVE (Negative) A* 04/15/20 10:33 C. difficile Toxin A&B Negative (Negative) 04/15/20 10:33 C. difficile Antigen Positive (Negative) A 04/15/20 10:33 C. difficile Interpret PCR to be performed 04/15/20 10:33 Coronavirus (PCR) NEGATIVE (Negative) 04/13/20 15:35 Influenza Type A (PCR) NEGATIVE (Negative) 04/13/20 15:35 Influenza Type B (PCR) NEGATIVE (Negative) 04/13/20 15:35 RSV RNA Qual (PCR) NEGATIVE (Negative) 04/13/20 15:35 Preliminary micro results at discharge 04/13/20 15:19 Blood Culture - Preliminary Blood - Venous No growth after 48 hours. 04/13/20 15:07 Blood Culture - Preliminary Blood - Venous No growth after 48 hours. Discharge Plan Discharge Anticipated Discharge Date/Time: 04/16/20 11:14 Patient Disposition: Home, Self-Care Referrals: Physician,Unknown [Primary Care Provider] - Discharge Medications: New vancomycin 125 mg Capsule 250 mg PO QID Qty: 52 RF: 0 cefuroxime axetil 250 mg tablet 250 mg PO BID Qty: 14 RF: 0 Continued lisinopril-hydrochlorothiazide 20-12.5 mg tablet 1 tab PO DAILY RF: 0 atenolol 25 mg tablet 25 mg PO DAILY RF: 0 simvastatin 20 mg tablet 20 mg PO BEDTIME RF: 0 Eliquis 2.5 mg tablet 2.5 mg PO BID RF: 0 Discharge Orders: Discharge Order (Routine); Ordered 04/16/20 Ordered By: Shahzad Villagomez Diet: advance to usual diet Activity on Discharge: As tolerated Discharge Date/Time: 04/16/20 14:35 Visit Report Forms: Patient Portal Discharge page Care Plan Goals: To cure UTI and C dif Health Concerns: Recurrent C dif Plan of Treatment: Take Cefuroxume for UTI, and Vancomycin for C dif, and follow with Dr. Mao Rome for recurrent C Dif and consideration for stool transplant, drink plenty of fluid to avoid dehydration. Call and arrange for follow up appointment with your Doctor within a week
[2020-04-16 12:01] VITALS: BP 144/74; PULSE 63; RESP 17; TEMP 36.2; O2SAT 97
== END 2020-04-16 14:35 | disposition home or self-care (01) | DRG 872 ==
LOC: HO.ED 19:41 → HO.IMC 21:21 → HO.S3 04-14 16:07
PROVIDERS: Nurse Practitioner Primary Care; Physician Assistant Medical; Admitting Provider Internal Medicine; Emergency Provider Emergency Medicine Emergency Medical Services; Visit Provider Internal Medicine
DX: A41.9 Sepsis, unspecified organism (principal); A04.71 Enterocolitis due to Clostridium difficile, recurrent; N39.0 Urinary tract infection, site not specified; B96.20 Unspecified Escherichia coli [E. coli] as the cause of diseases classified elsewhere; B96.1 Klebsiella pneumoniae [K. pneumoniae] as the cause of diseases classified elsewhere; E78.5 Hyperlipidemia, unspecified; I95.9 Hypotension, unspecified; Z20.828 Contact with and (suspected) exposure to other viral communicable diseases; Z86.711 Personal history of pulmonary embolism; Z79.01 Long term (current) use of anticoagulants; Z79.899 Other long term (current) drug therapy
CPT/HCPCS: 0241U; 36415; 71045; 80048; 80053; 81001; 83605; 85025; 85027; 85610; 85730; 87040; 87086; 87088; 87186; 87324; 87449; 87493; 96361; 96365; 97162; 99285; J0696